=== PATIENT | female | born 1950 | race Caucasian/White ===

== ENCOUNTER → 2019-07-28 | Outpatient (CLI) | payer MEDICARE, OTHER ==
[~2019-07-28] MED LIST: Armour Thyroid15 MG; Estriol0.1 GM XX
== END | disposition home or self-care (01) ==
LOC: LAB 17:03 → LAB SHORT 17:03
DX: R21 Rash and other nonspecific skin eruption (principal)
CPT/HCPCS: 87529

== ENCOUNTER 2020-08-01 08:59 | Day surgery (SDC) | payer MEDICARE, OTHER ==
[~2020-08-01] VITALS: Ht 160 cm; Wt 19.3 kg
[~2020-08-01 08:59] MED LIST changes: +D-MANNOSE PO; +DHEA PO; +ESTRAGEN PO; +Estrace Vagin42.5 GM; +MAGNESIUM OXID500 MG PO; +MYNEPHRON CAPSUL1 MG PO; +PROGESTERON PO; +Selenomax200 MCG PO; +T3/T4 PO; +TESTOSTERONE CRM; +VITAMIN D31000 UNI1 PO; +Vitamin E400 UNI4; +ZINC15 PO; +[UNRECOGNIZED DRUG - OTHER] TP
== END 2020-08-01 11:00 | disposition home or self-care (01) ==
LOC: ORSCSDS 08:59
PROVIDERS: Internal Medicine Gastroenterology
PROC: 0DBK8ZX Excision of Ascending Colon, Via Natural or Artificial Opening Endoscopic, Diagnostic (ICD-10-PCS; principal; 2020-08-01 10:30)
PROC: 0DBP8ZX Excision of Rectum, Via Natural or Artificial Opening Endoscopic, Diagnostic (ICD-10-PCS; principal; 2020-08-01 10:30)
DX: Z12.11 Encounter for screening for malignant neoplasm of colon (principal); C7A.026 Malignant carcinoid tumor of the rectum; D12.2 Benign neoplasm of ascending colon; K64.8 Other hemorrhoids; E03.9 Hypothyroidism, unspecified
CPT/HCPCS: 88305; 88341; 88342; J2704; J7120

== ENCOUNTER 2022-11-20 16:53 | Emergency (ER) | payer MEDICARE ==
[~2022-11-20] VITALS: Ht 160 cm; Wt 52.6 kg
[2022-11-20 17:34] LABS: BASOPHILS ABSOLUTE AUTO 0.03 K/mm3 (0.00-0.23); BASOPHILS PERCENT AUTO 0 % (0-2); EOSINOPHILS ABSOLUTE AUTO 0.09 K/mm3 (0.00-0.68); EOSINOPHILS PERCENT AUTO 1 % (0-6); Hematocrit 41.6 % (33.0-51.0); Hemoglobin 14.3 g/dL (11.5-16.0); IMMATURE GRAN ABSOLUTE AUTO 0.03 K/mm3 (0.00-0.10); IMMATURE GRAN PERCENT AUTO 0 % (0-1); LYMPHOCYTES PERCENT AUTO 11 % (21-46); MONOCYTES ABSOLUTE AUTO 0.47 K/mm3 (0.16-1.47); MONOCYTES PERCENT AUTO 5 % (4-13); Mean Corpuscular HGB 32.3 pg (26.0-34.0); Mean Corpuscular HGB Conc 34.4 g/dL (31.5-36.5); Mean Corpuscular Volume 94 fL (80-100); Mean Platelet Volume 11.2 fL (9.1-12.4); NEUTROPHILS ABSOLUTE AUTO 7.43 K/mm3 (1.96-9.15); NEUTROPHILS PERCENT AUTO 82 % (41-73); Platelet Count 221 K/mm3 (150-400); RDW Coefficient Variation 12.6 % (11.7-14.2); RDW Standard Deviation 43.8 fL (35.1-46.3); Red Blood Cell Count 4.43 M/mm3 (3.80-5.20); White Blood Cell Count 9.05 K/mm3 (4.00-11.30)
[2022-11-20 18:02] LABS: Magnesium, Blood 2.3 mg/dL (1.6-2.4)
[2022-11-20 18:06] LABS: Albumin, Blood 3.8 g/dL (3.4-5.0); Albumin/Globulin Ratio 1.2 (0.8-1.8); Bilirubin, Total 0.5 mg/dL (0.1-1.0); Bun/Creatinine Ratio 22.9 (12.0-20.0); Calcium, Blood 9.1 mg/dL (8.5-10.1); Creatinine, Blood 0.74 mg/dL (0.40-1.00); Globulin, Blood 3.3 g/dL (2.2-4.0); Potassium, Blood 4.1 mmol/L (3.5-5.5); Total Protein, Blood 7.1 g/dL (6.4-8.2)
[2022-11-20] MEDS ORDERED: ONDA4ODT SL (20:07)
[2022-11-20] MEDS ORDERED: EUTHYROX125 MCG PO (20:20)
[2022-11-20] MEDS ORDERED: Naltrexone HCl50 MG PO (20:20)
== END 2022-11-20 20:31 | disposition home or self-care (01) ==
LOC: ER 16:53
PROVIDERS: Physician Assistant
DX: R11.0 Nausea (principal); E03.9 Hypothyroidism, unspecified; Z79.899 Other long term (current) drug therapy; Z88.2 Allergy status to sulfonamides; Z88.8 Allergy status to other drugs, medicaments and biological substances
CPT/HCPCS: 36415; 80053; 83690; 83735; 85025; 99283; A9270

== ENCOUNTER 2025-06-12 10:03 | Day surgery (SDC) | payer MEDICARE, OTHER ==
[~2025-06-12] VITALS: Ht 160 cm; Wt 55.9 kg
[~2025-06-12 10:03] MED LIST changes: +EUTHYROX125 MCG PO; +Naltrexone HCl50 MG PO; +ONDA4ODT SL
[2025-06-12] MEDS ORDERED: NIAC500 (11:13)
[2025-06-12] MEDS ORDERED: MAGCHL64ER (11:14)
[2025-06-12] MEDS ORDERED: MAG GLYCINATE100 MG (11:14)
[2025-06-12] MEDS ORDERED: OMEGA-3 2100 S1 EACH (11:14)
[2025-06-12] MEDS ORDERED: Pregnenolone Po25 GM (11:16)
[2025-06-12] MEDS ORDERED: GARLIC200 MG (11:16)
[2025-06-12] MEDS ORDERED: GLUCHON (11:16)
[2025-06-12] MEDS ORDERED: TURMERIC ROOT5000 GM (11:16)
[2025-06-12] MEDS ORDERED: VITAMIN C125 MG (11:16)
[2025-06-12] MEDS ORDERED: PROG100 (11:17)
[2025-06-12] MEDS ORDERED: DEPLIN FC7.5 MG (11:17)
[2025-06-12] MEDS ORDERED: QUERCETIN500 MG (11:17)
[2025-06-12] MEDS ORDERED: TRAZ50 (11:18)
[2025-06-12 12:59] VITALS: BP 111/68
== END 2025-06-12 13:06 | disposition home or self-care (01) ==
LOC: ORSCSDS 10:03
PROVIDERS: Surgery
PROC: 0DJD8ZZ Inspection of Lower Intestinal Tract, Via Natural or Artificial Opening Endoscopic (ICD-10-PCS; principal; 2025-06-12 11:30)
DX: Z85.040 Personal history of malignant carcinoid tumor of rectum (principal); Z86.0101 Personal history of adenomatous and serrated colon polyps; E78.5 Hyperlipidemia, unspecified; E03.9 Hypothyroidism, unspecified; Z79.899 Other long term (current) drug therapy
CPT/HCPCS: J2003; J2704; J7120